=== PATIENT | male | born 1985 | race Two or more races ===

== ENCOUNTER 2024-12-30 11:37 | Inpatient (IN) | payer OTHER ==
[~2024-12-30] VITALS: Ht 180.3 cm; Wt 99.1 kg
[2024-12-30] MEDS: ONDANSETRON HCL 4 MG/2 ML VIAL IV ONE (12:12)
[2024-12-30] MEDS: PANTOPRAZOLE 40 MG/10 ML VIAL INJ IV ONE (12:12)
--- NOTE | 2024-12-30 12:12 | ED.PDOC ---
GI ASSESSMENT HPI Comments 41 y/o M, BIBA, accompanied by law enforcement, with PMHx of A-Fib, gastritis, esophageal varices, and hyperthyroidism presents to the ED for CC of abdominal pain. EMS reports, patient is [facility] where he complains of LUQ abdominal pain with associated symptoms of hematemesis, dizziness, and headache onset, 1hour TILE SETTER APPRENTICE. EMS relays, upon arrival to scene patient was found to be hypertensive with a blood pressure of 230/120, lethargic vomiting approximately 2000mL of bright red emesis. Patient endorses, similar symptoms in past. Patient denies hematochezia, epistaxis, diarrhea, fever, or chills. No other symptoms or modifying factors present at this time. Chief Complaint: Abdominal Pain Time Seen by MD: 12:00 Primary Care Provider: NONE Reviewed Notes: Nurses Notes, Metal Buildings Assembler Notes, Medications, Allergies Allergies: Coded Allergies: NO KNOWN ALLERGIES (Unverified , 12/30/24) Information Source: Patient, Law Enforcement, Emergency Med Personnel Mode of Arrival: EMS Timing: Hours Duration: Since onset Prehospital treatment: None Quality: None Vomitus: Watery, Bright Red Bood Stool: Normal Severity: Moderate Recent: None Recent Hx of: Ulcer Disease Pain Location: LUQ Modifying Factors: Nothing Associated sign and symptoms: Nausea, Vomiting, Hematemesis, Abdominal Pain Past Medical History PAST MEDICAL HISTORY: AFIB, Thyroid Surgical History: Denies all surgeries Family History Family History: Unknown Social History Smoker: Non-Smoker Alcohol: Denies ETOH Use Drugs: Denies Drug Use Lives In: Home Constitutional: denies: chills, diaphoresis, fatigue, fever, malaise, sweats, weakness, others EENTM: denies: blurred vision, double vision, ear bleeding, ear discharge, ear drainage, ear pain, ear ringing, eye pain, eye redness, hearing loss, mouth pain, mouth swelling, nasal discharge, nose bleeding, nose congestion, nose pain, photophobia, tearing, throat pain, throat swelling, voice changes, others Respiratory: denies: cough, hemoptysis, orthopnea, SOB at rest, shortness of breath, SOB with excertion, stridor, wheezing, others Cardiovascular: denies: chest pain, dizzy spells, diaphoresis, Dyspnea on exertion, edema, irregular heart beat, left arm pain, lightheadedness, palpitations, PND, syncope, others Gastrointestinal: reports: abdominal pain, hematemesis; denies: abdomen distended, blood streaked bowels, constipated, diarrhea, dysphagia, difficulty swallowing, melena, nausea, poor appetite, poor fluid intake, rectal bleeding, rectal pain, vomiting, others Genitourinary: denies: burning, dysuria, flank pain, frequency, hematuria, incontinence, penile discharge, penile sore, pain, testicle pain, testicle swelling, urgency, others Neurological: reports: dizziness, headache; denies: fainting, left sided numbness, left sided weakness, numbness, paresthesia, pre-existing deficit, right sided numbness, right sided weakness, seizure, speech problems, tingling, tremors, weakness, others Musculoskeletal: denies: back pain, gout, joint pain, joint swelling, muscle pain, muscle stiffness, neck pain, others Integumetry: denies: bruises, change in color, change in hair/nails, dryness, laceration, lesions, lumps, rash, wounds, others Allergic/Immunocompromised: denies: Difficulty Healing, Frequent Infections, Hives, Itching, others Hematologic/Lymphatic: denies: anemia, blood clots, easy bleeding, easy bruising, swollen glands, others Endocrine: denies: excessive hunger, excessive sweating, excessive thirst, excessive urination, flushing, intolerance to cold, intolerance to heat, unexplained weight gain, unexplained weight loss, others Psychiatric: denies: anxiety, bipolar disorder, depression, hopeless, panic disorder, schizophrenia, sleepless, suicidal, others All Other Systems: Reviewed and Negative Physical Exam General Appearance: Moderate Distress, Normal, Other (10 CC of bright red emesis) HEENT: Normal ENT Inspection, Pharynx Normal, TMs Normal Neck: Full Range of Motion, Non-Tender, Normal, Normal Inspection Respiratory: Chest Non-Tender, Lungs Clear, No Accessory Muscle Use, No Respiratory Distress, Normal Breath Sounds Cardiovascular: No Edema, No Murmur, No Gallop, Normal Peripheral Pulses, Tachycardia Breast Exam: Deferred Gastrointestinal: No Organomegaly, Non Tender, No Pulsatile Mass, Normal Bowel Sounds, Soft Genitalia: Deferred Pelvic: Deferred Rectal: Deferred Extremities: No calf tenderness, Normal capillary refill, Normal inspection, Normal range of motion, Non-tender, No pedal edema Musculoskeletal : Apperance: Normal Neurologic: Alert, 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 Was a procedure done?: No GI differential Dx Differential Diagnosis: Esophageal rupture, Esophagitis, Gastritis/PUD, Gastroenteritis, GI hemorrhage, Hernia, Pancreatitis, Electrolyte Imbalance, Anemia, Other (esophageal varices, , benjamín weisse) X-Ray, Labs, Meds, VS Vital Signs Date Time Temp Pulse Resp B/P (MAP) Pulse Ox O2 Delivery O2 Flow Rate FiO2 12/30/24 12:41 60 18 169/107 12/30/24 12:10 56 17 145/120 (128) 93 12/30/24 11:40 98.8 66 16 230/190 (203) 98 98.8 Lab Test 12/30/24 13:28 12/30/24 12:12 Range/Units Troponin I High Sensitivity 6 7 </=54 ng/L White Blood Count 6.3 4.4-10.8 10^3/uL Red Blood Count 5.33 4.5-5.90 10^6/uL Hemoglobin 15.8 13.5-17.5 g/dL Hematocrit 46.1 41.0-53.0 % Mean Corpuscular Volume 86.5 80.0-100.0 fL Mean Corpuscular Hemoglobin 29.7 28.0-32.0 pg Mean Corpuscular Hemoglobin Concent 34.3 32.0-36.0 g/dL Red Cell Distribution Width 16.9 H 11.8-14.3 % Platelet Count 124 L 140-450 10^3/uL Mean Platelet Volume 10.2 6.9-10.8 fL Neutrophils (%) (Auto) 56.7 37.0-80.0 % Lymphocytes (%) (Auto) 36.2 10.0-50.0 % Monocytes (%) (Auto) 5.9 0.0-12.0 % Eosinophils (%) (Auto) 0.8 0.0-7.0 % Basophils (%) (Auto) 0.4 0.0-2.0 % Neutrophils # (Auto) 3.6 1.6-8.6 10 ^3/uL Lymphocytes # (Auto) 2.3 0.4-5.4 10 ^3/uL Monocytes # (Auto) 0.4 0-1.3 10 ^3/uL Eosinophils # (Auto) 0.1 0-0.8 10 ^3/uL Basophils # (Auto) 0 0-0.2 10 ^3/uL Nucleated Red Blood Cells 0.2 % Prothrombin Time 12.2 H 9.3-11.8 sec Prothrombin Time INR 1.17 H 0.9-1.15 Activated Partial Thromboplast Time 26.9 24.5-34.5 SEC Sodium Level 139 136-145 mmol/L Potassium Level 4.6 3.5-5.1 mmol/L Chloride Level 105 98-107 mmol/L Carbon Dioxide Level 24 20-31 mmol/L Anion Gap 10 5-15 Blood Urea Nitrogen 14 9-23 mg/dL Creatinine 0.96 0.700-1.30 mg/dL Glomerular Filtration Rate Calc 103 >90 mL/min BUN/Creatinine Ratio 14.6 10.0-20.0 Serum Glucose 85 74-106 mg/dL Calcium Level 9.7 8.7-10.4 mg/dL Total Bilirubin 0.7 0.2-1.0 mg/dL Aspartate Amino Transferase (AST) 36 13-40 U/L Alanine Aminotransferase (ALT) 21 7-40 U/L Alkaline Phosphatase 358 H 46-116 U/L Total Protein 8.1 5.7-8.2 g/dL Albumin 4.9 H 3.2-4.8 g/dL Current Medications Medications (Trade) Dose Ordered Sig/Mariam Route Start Time Stop Time Status Last Admin Octreotide Acetate 100 mcg/ Sodium Chloride 51 ml @ 204 mls/hr ONCE ONCE IV 12/30/24 12:00 12/30/24 12:27 DC 12/30/24 14:40 Octreotide Acetate 500 mcg/ Sodium Chloride 100 ml @ 10 mls/hr Q10H IV 12/30/24 12:00 12/30/24 15:18 Pantoprazole Sodium 50 ml @ 10 mls/hr Q5H ONCE IV 12/30/24 12:00 12/30/24 16:59 12/30/24 15:10 Pantoprazole Sodium 80 mg/ Sodium Chloride 120 ml @ 240 mls/hr ONCE ONCE IV 12/30/24 12:00 12/30/24 12:29 DC 12/30/24 14:30 Pantoprazole Sodium (Protonix) 40 mg ONCE ONCE IV 12/30/24 12:00 12/30/24 12:01 DC 12/30/24 12:12 Ondansetron HCl (Zofran) 4 mg ONCE ONCE IV 12/30/24 12:00 12/30/24 12:01 DC 12/30/24 12:12 Hydromorphone HCl (Dilaudid Injection) 1 mg ONCE ONCE IV 12/30/24 12:45 12/30/24 12:46 DC 12/30/24 12:41 [place] [address] Ph: [phone] DIAGNOSTIC IMAGING Diagnostic Imaging Report : [id number] Signed PATIENT: SIMIN ESCOBEDO ACCT: [id number] UNIT: [id number] : 1985 LOC: ER ROOM / BED: / AGE / SEX: 39 / M ADM STATUS: REG ER SERVICE 1155 ORDERING PHYSICIAN: TYRON PHILLIP MD PROCEDURE(s): ABPLIV - CT AB PEL WITH IV CON ONLY REASON: upper gib ORDER NUMBER(s): [id number], ACCESSION NUMBER(s): [id number] CLINICAL INFORMATION: Upper GI bleed. Abdominal pain. TECHNIQUE: Axial CT images of the abdomen and pelvis were obtained after the uneventful administration of 100 mL Omnipaque 300 IV contrast. Coronal and sagittal reformatted images were obtained, reviewed, and stored. All CT scans at this medical facility are performed using dose modulation techniques as appropriate to a performed exam including the following: Automated exposure control was utilized; adjustment of the MA and/or KV according to patient size; and use of iterative reconstruction technique. CTDIvol = 12.08 mGy DLP = 783.49 mGy-cm COMPARISON: None FINDINGS: Lung bases: Lung bases are clear. Liver: Hepatic steatosis. Biliary: No calcified gallstones or biliary ductal dilatation. Spleen: Unremarkable. Pancreas: Unremarkable. No inflammatory changes, ductal dilatation, or mass identified. Adrenal glands: Unremarkable. No mass. Kidneys: No hydronephrosis or mass. Aorta/Vascular: No aneurysm or significant calcification. Retroperitoneum: No mass or lymphadenopathy. Bowel/mesentery: Nonspecific mildly distended fluid-filled small bowel loops. No small bowel obstruction. Appendix is not visualized. Scattered colonic diverticula without adjacent inflammatory changes to suggest diverticulitis. Moderate stool in the colon. Pelvic organs: Grossly unremarkable. Bladder: Moderately distended bladder. Abdominal wall: No mass or hernia. Bones: No acute fracture or focal intraosseous lesion. IMPRESSION: 1. Nonspecific mildly distended fluid-filled small bowel loops. Findings may be seen with ileus or enteritis in the appropriate clinical setting. No small bowel obstruction. 2. Scattered colonic diverticula without adjacent inflammatory changes to suggest diverticulitis. 3. Hepatic steatosis. 4. Moderately distended bladder. 5. Additional findings as detailed above. ATED BY: KAMALJIT MACDONALD DO DICTATED DATE/TIME: 12/30/241352 SIGNED BY: KAMALJIT MACDONALD DO SIGNED DATE/TIME: 12/30/24 135 CC: [place] [address] Ph: [phone] DIAGNOSTIC IMAGING Diagnostic Imaging Report : [id number] Signed PATIENT: SIMIN ESCOBEDO ACCT: [id number] UNIT: [id number] : 1985 LOC: ER ROOM / BED: / AGE / SEX: 39 / M ADM STATUS: REG ER SERVICE 1155 ORDERING PHYSICIAN: TYRON PHILLIP MD PROCEDURE(s): CXRP - CHEST PORTABLE REASON: afib ORDER NUMBER(s): [id number], ACCESSION NUMBER(s): [id number] EXAM: XY CHEST PORTABLE REASON FOR EXAM: afib TECHNIQUE: 1 view of the chest COMPARISON: None FINDINGS/IMPRESSION: LUNGS: No pleural effusion, consolidation, or pneumothorax. Suspected central pulmonary vascular congestion and peripheral interstitial edema. MEDIASTINUM: Unremarkable BONES: No acute osseous abnormality OTHER: None ATED BY: RIVER PRIETO MD DICTATED DATE/TIME: 12/30/24 141 SIGNED BY: RIVER PRIETO MD SIGNED DATE/TIME: 12/30/241418 CC: Time of 1ST Reevaluation: 12:30 Reevaluation 1ST: Unchanged Time of 2ND Reevaluation: 15:34 Reevaluation 2ND: Improved Patient Education/Counseling: Diagnosis, Treatment, Prognosis, Need For Follow Up Family Education/Counseling: Diagnosis, Treatment, Prognosis, Need For Follow Up, No Family Present Additional Information The following tests were ordered, and results were reviewed by me: CT ABD PEL, CXR, CBC, CMP, PTPTT, TROPONIN X2, EKG X2 Additional Information was gathered from interviewing the following independent historians: EMS, LAW ENFORCEMENT I reviewed and agreed with the following test results read by other providers: CT ABD PEL, CXR, I discussed treatment and results with medical personnel and: patient Comprehensive systems review obtained and negative except for what is stated in the HPI. Departure 1 Departure Time of Disposition: 15:34 Impression: Primary Impression: UGIB (upper gastrointestinal bleed) Disposition: ADMITTED INPATIENT Admit to: [facility] Condition: Serious Discharged With: Self, Law Enforcement Critical Care Note Critical Care Time?: Yes (1 hr-critical care time only) Critical care comment: due to concerns for patient's condition deteriorating, the care required my highest level of attention and readiness to intervene. i assessed the patient's condition, ordered the proper tests and treatments, reassessed for response and reviewed the results. i communicated with medical personnel and formulated a plan of care. total critical care time does not include any procedures Stability Stability form required: No Heart Score Heart Score: Heart Score Response (Comments) Value History N/A 0 EKG N/A 0 Age N/A 0 Risk Factors N/A 0 Troponin N/A 0 Total 0 I personally scribed for TYRON PHILLIP MD ([email or web address]) on 12/30/24 at 12:12. Electronically submitted by Rosie Parr ([email or web address]). I personally scribed for TYRON PHILLIP MD ([email or web address]) on 12/30/24 at 12:20. Electronically submitted by Rosie Parr ([email or web address]). I personally scribed for TYRON PHILLIP MD ([email or web address]) on 12/30/24 at 14:22. Electronically submitted by Rosie Parr ([email or web address]). I personally scribed for TYRON PHILLIP MD ([email or web address]) on 12/30/24 at 15:13. Electronically submitted by Rosie Parr [email or web address]). TYRON PHILLIP MD December 30, 2024 12:12
[2024-12-30 12:23] LABS: Basophils # (auto) 0 10 ^3/uL (0-0.2); Basophils % (auto) 0.4 % (0.0-2.0); Eosinophils # (auto) 0.1 10 ^3/uL (0-0.8); Eosinophils % (auto) 0.8 % (0.0-7.0); Hematocrit 46.1 % (41.0-53.0); Hemoglobin 15.8 g/dL (13.5-17.5); Lymphocytes # (auto) 2.3 10 ^3/uL (0.4-5.4); Lymphocytes % (auto) 36.2 % (10.0-50.0); Mean Corpuscular Hemoglobin 29.7 pg (28.0-32.0); Mean Corpuscular Hgb Conc. 34.3 g/dL (32.0-36.0); Mean Corpuscular Volume 86.5 fL (80.0-100.0); Monocytes # (auto) 0.4 10 ^3/uL (0-1.3); Monocytes % (auto) 5.9 % (0.0-12.0); Neutrophils # (auto) 3.6 10 ^3/uL (1.6-8.6); Neutrophils % (auto) 56.7 % (37.0-80.0); Nucleated Red Blood Cells % 0.2 %; Platelet Count (auto) 124 10^3/uL (140-450); Red Blood Cells 5.33 10^6/uL (4.5-5.90); Red Cell Distribution Width 16.9 % (11.8-14.3); White Blood Cell 6.3 10^3/uL (4.4-10.8)
[2024-12-30] MEDS: IOHEXOL 300 MG/ML 100ML BOTTLE IJ ONE (12:29)
[2024-12-30] MEDS: LABETALOL HCL 20 MG/4 ML VL IV ONE (12:37)
[2024-12-30] MEDS: LABETALOL INJECTION 250 MG in SODIUM CHL 0.9% 200 ML IV ONE (12:37)
[2024-12-30 12:38] LABS: INR 1.17 (0.9-1.15); Partial Thromboplastin Time 26.9 SEC (24.5-34.5); Prothrombin Time 12.2 sec (9.3-11.8)
[2024-12-30] MEDS: HYDROmorphone HCL 2 MG/ML VL/or syr IV ONE (12:41)
[2024-12-30 12:43] LABS: Alanine Aminotransferase 21 U/L (7-40); Albumin 4.9 g/dL (3.2-4.8); Alkaline Phosphatase 358 U/L (46-116); Anion Gap 10 (5-15); Aspartate Aminotransferase 36 U/L (13-40); BUN/Creatinine Ratio 14.6 (10.0-20.0); Bilirubin, Total 0.7 mg/dL (0.2-1.0); Blood Urea Nitrogen 14 mg/dL (9-23); Calcium 9.7 mg/dL (8.7-10.4); Carbon Dioxide 24 mmol/L (20-31); Chloride 105 mmol/L (98-107); Glucose 85 mg/dL (74-106); Potassium 4.6 mmol/L (3.5-5.1); Sodium 139 mmol/L (136-145); Total Protein 8.1 g/dL (5.7-8.2)
--- NOTE | 2024-12-30 13:55 | DVH ---
CLINICAL INFORMATION: Upper GI bleed. Abdominal pain. TECHNIQUE: Axial CT images of the abdomen and pelvis were obtained after the uneventful administrati on of 100 mL Omnipaque 300 IV contrast. Coronal and sagittal reformatted images were obtained, review ed, and stored. All CT scans at this medical facility are performed using dose modulation techniques as appropriate to a performed exam including the following: Automated exposure control was utilized; adjustment of the MA and/or KV according to patient size; and use of iterative reconstruction technRichard Toland Designs ue. CTDIvol = 12.08 mGy DLP = 783.49 mGy-cm COMPARISON: None FINDINGS: Lung bases: Lung bases are clear. Liver: Hepatic steatosis. Biliary: No calcified gallstones or biliary ductal dilatation. Spleen: Unremarkable. Pancreas: Unremarkable. No inflammatory changes, ductal dilatation, or mass identified. Adrenal glands: Unremarkable. No mass. Kidneys: No hydronephrosis or mass. Aorta/Vascular: No aneurysm or significant calcification. Retroperitoneum: No mass or lymphadenopathy. Bowel/mesentery: Nonspecific mildly distended fluid-filled small bowel loops. No small bowel obstruct ion. Appendix is not visualized. Scattered colonic diverticula without adjacent inflammatory changes to suggest diverticulitis. Moderate stool in the colon. Pelvic organs: Grossly unremarkable. Bladder: Moderately distended bladder. Abdominal wall: No mass or hernia. Bones: No acute fracture or focal intraosseous lesion. IMPRESSION: 1. Nonspecific mildly distended fluid-filled small bowel loops. Findings may be seen with ileus or en teritis in the appropriate clinical setting. No small bowel obstruction. 2. Scattered colonic diverticula without adjacent inflammatory changes to suggest diverticulitis. 3. Hepatic steatosis. 4. Moderately distended bladder. 5. Additional findings as detailed above.
--- NOTE | 2024-12-30 14:21 | DVH ---
EXAM: XY CHEST PORTABLE REASON FOR EXAM: afib TECHNIQUE: 1 view of the chest COMPARISON: None FINDINGS/IMPRESSION: LUNGS: No pleural effusion, consolidation, or pneumothorax. Suspected central pulmonary vascular ariel estion and peripheral interstitial edema. MEDIASTINUM: Unremarkable BONES: No acute osseous abnormality OTHER: None
[2024-12-30] MEDS: PANTOPRAZOLE 80 MG in SODIUM CHL 0.9% 100 ML IV ONE (14:30)
[2024-12-30] MEDS: OCTREOTIDE ACETATE 100 MCG in SODIUM CHL 0.9% 50 ML IV ONE (14:40)
[2024-12-30] MEDS: PANTOPRAZOLE 40mg/50ML NS AE 50 ML IV ONE (15:10)
[2024-12-30] MEDS: OCTREOTIDE ACETATE 500 MCG in SODIUM CHL 0.9% 99 ML IV SCH (15:18)
[2024-12-30] MEDS ORDERED: AMLO1TAB23 PO (16:11)
[2024-12-30] MEDS ORDERED: APIX5TAB PO (16:11)
[2024-12-30] MEDS ORDERED: OMEP-434 PO (16:11)
[2024-12-30] MEDS ORDERED: METO-289 PO (16:11)
[2024-12-30] MEDS ORDERED: LOSA-535 PO (16:11)
[2024-12-30] MEDS ORDERED: METH5TAB98 PO (16:11)
[2024-12-30] MEDS ORDERED: SUCR1TAB31 OR (16:11)
--- NOTE | 2024-12-30 16:13 | ECG ---
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
[2024-12-30] MEDS ORDERED: ONDANSETRON HCL 4 MG/2 ML VIAL IV PRN (16:15)
[2024-12-30] MEDS ORDERED: MORPHINE SULFATE INJ 2 MG/ml SYRG IV PRN (16:15)
[2024-12-30] MEDS ORDERED: NITROGLYCERIN 0.4 MG SL TAB SL PRN (16:15)
[2024-12-30 16:28] LABS: Hemoglobin 15.4 g/dL (13.5-17.5)
[2024-12-30 16:43] LABS: Urine Bacteria None Seen /hpf (None Seen)
--- NOTE | 2024-12-30 16:45 | DVHHP2 ---
History of Present Illness Reason for Visit: Vomiting blood History of Present Illness Bulmaro Brennan is a 39-year-old male with past medical history of esophageal varices, GI bleed, multiple EGDs, atrial fibrillation - on anticoagulation, gastritis, and hyperthyroidism, who came in due to vomiting blood. Patient states he woke up this morning not feeling great. Went to get ready for work. While in the bathroom he began to feel sick and vomited bright red blood. He states he was then given an emesis bag that he filled up bright red vomit. He continued to vomit upon arrival to the hospital. Emesis is now a dark brown in color, and minimal. He last vomited around 12:30pm. 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 Dyspnea, Edema, Lt Headedness, Other Gastrointestinal: Nausea, Vomiting, Abdominal Pain, Hematochezia; No: Diarrhea, Constipation, Melena, Other Genitourinary: No Dysuria, No Frequency, No Incontinence, No Hematuria, No Retention, No Other Musculoskeletal: No: other, neck pain, shoulder pain, arm pain, back pain, hand pain, leg pain, foot pain Skin: No: Rash, Lesions, Jaundice, Bruising, Other Neurological: No: Weakness, Numbness, Incoordination, Change in speech, Confusion, Seizures, Other Allergies: Coded Allergies: NO KNOWN ALLERGIES (Unverified , 12/30/24) Medications Current Medications Medications Dose Ordered Sig/Mariam Route Start Time Stop Time Status Last Admin Dose Admin Octreotide Acetate 500 mcg/ Sodium Chloride 100 ml @ 10 mls/hr Q10H IV 12/30/24 12:00 12/30/24 15:18 10 MLS/HR Nicardipine/ Sodium Chloride 200 ml @ 50 mls/hr Q4H IV 12/30/24 16:15 UNV Exam Vital Signs Vital Signs Date Time Temp Pulse Resp B/P (MAP) Pulse Ox O2 Delivery O2 Flow Rate FiO2 12/30/24 15:37 60 166/96 (119) 96 12/30/24 13:11 15 12/30/24 11:40 98.8 98.8 General Appearance: Alert, Oriented X3, Cooperative, moderate distress HEENT: Atraumatic, PERRLA Respiratory: Clear to auscultation Cardiovascular: Normal S1, Normal S2, Other (SB) Abdominal: Normal bowel sounds, Soft Extremities: No clubbing, No cyanosis Skin: No rashes, No breakdown, No significant lesion Neuro: Normal gait, Normal speech, Strength at 5/5 X4 ext, Normal tone, Sensation intact Psych/Mental Status: Mental status NL, Mood NL, Other Labs/Xrays Labs Test 12/30/24 13:28 12/30/24 12:12 Range/Units Troponin I High Sensitivity 6 </=54 ng/L White Blood Count 6.3 4.4-10.8 10^3/uL Red Blood Count 5.33 4.5-5.90 10^6/uL Hemoglobin 15.8 13.5-17.5 g/dL Hematocrit 46.1 41.0-53.0 % Mean Corpuscular Volume 86.5 80.0-100.0 fL Mean Corpuscular Hemoglobin 29.7 28.0-32.0 pg Mean Corpuscular Hemoglobin Concent 34.3 32.0-36.0 g/dL Red Cell Distribution Width 16.9 H 11.8-14.3 % Platelet Count 124 L 140-450 10^3/uL Mean Platelet Volume 10.2 6.9-10.8 fL Neutrophils (%) (Auto) 56.7 37.0-80.0 % Lymphocytes (%) (Auto) 36.2 10.0-50.0 % Monocytes (%) (Auto) 5.9 0.0-12.0 % Eosinophils (%) (Auto) 0.8 0.0-7.0 % Basophils (%) (Auto) 0.4 0.0-2.0 % Neutrophils # (Auto) 3.6 1.6-8.6 10 ^3/uL Lymphocytes # (Auto) 2.3 0.4-5.4 10 ^3/uL Monocytes # (Auto) 0.4 0-1.3 10 ^3/uL Eosinophils # (Auto) 0.1 0-0.8 10 ^3/uL Basophils # (Auto) 0 0-0.2 10 ^3/uL Nucleated Red Blood Cells 0.2 % Prothrombin Time 12.2 H 9.3-11.8 sec Prothrombin Time INR 1.17 H 0.9-1.15 Activated Partial Thromboplast Time 26.9 24.5-34.5 SEC Sodium Level 139 136-145 mmol/L Potassium Level 4.6 3.5-5.1 mmol/L Chloride Level 105 98-107 mmol/L Carbon Dioxide Level 24 20-31 mmol/L Anion Gap 10 5-15 Blood Urea Nitrogen 14 9-23 mg/dL Creatinine 0.96 0.700-1.30 mg/dL Glomerular Filtration Rate Calc 103 >90 mL/min BUN/Creatinine Ratio 14.6 10.0-20.0 Serum Glucose 85 74-106 mg/dL Calcium Level 9.7 8.7-10.4 mg/dL Total Bilirubin 0.7 0.2-1.0 mg/dL Aspartate Amino Transferase (AST) 36 13-40 U/L Alanine Aminotransferase (ALT) 21 7-40 U/L Alkaline Phosphatase 358 H 46-116 U/L Total Protein 8.1 5.7-8.2 g/dL Albumin 4.9 H 3.2-4.8 g/dL EXAM: XY CHEST PORTABLE REASON FOR EXAM: afib TECHNIQUE: 1 view of the chest COMPARISON: None FINDINGS/IMPRESSION: LUNGS: No pleural effusion, consolidation, or pneumothorax. Suspected central pulmonary vascular congestion and peripheral interstitial edema. MEDIASTINUM: Unremarkable BONES: No acute osseous abnormality OTHER: None TECHNIQUE: Axial CT images of the abdomen and pelvis were obtained after the uneventful administration of 100 mL Omnipaque 300 IV contrast. FINDINGS: Lung bases: Lung bases are clear. Liver: Hepatic steatosis. Biliary: No calcified gallstones or biliary ductal dilatation. Spleen: Unremarkable. Pancreas: Unremarkable. No inflammatory changes, ductal dilatation, or mass identified. Adrenal glands: Unremarkable. No mass. Kidneys: No hydronephrosis or mass. Aorta/Vascular: No aneurysm or significant calcification. Retroperitoneum: No mass or lymphadenopathy. Bowel/mesentery: Nonspecific mildly distended fluid-filled small bowel loops. No small bowel obstruction. Appendix is not visualized. Scattered colonic diverticula without adjacent inflammatory changes to suggest diverticulitis. Moderate stool in the colon. Pelvic organs: Grossly unremarkable. Bladder: Moderately distended bladder. Abdominal wall: No mass or hernia. Bones: No acute fracture or focal intraosseous lesion. IMPRESSION: 1. Nonspecific mildly distended fluid-filled small bowel loops. Findings may be seen with ileus or enteritis in the appropriate clinical setting. No small bowel obstruction. 2. Scattered colonic diverticula without adjacent inflammatory changes to suggest diverticulitis. 3. Hepatic steatosis. 4. Moderately distended bladder. 5. Additional findings as detailed above. Assessment/Plan Assessment/Plan Assessment: UGIB (upper gastrointestinal bleed), Hypertensive urgency, Intractable headache, Abdominal pain, Bradycardia, H/O esophageal varices, Hyperthyroidism, H/O atrial fibrillation - on blood thinner, Gastritis, Plan: Admit to ICU, GI consult, Nicardipine drip to keep SBP <140, Protonix drip, Octreotide drip, IV hydration, IV Toradol x 1 for severe headache, NPO, Home medications held due to patient being NPO, Plan discussed with: Patient My Orders Orders - HILARIO JONES Procedure Category Date Status Time Hemoglobin & LAB 12/30/24 Logged Hematocrit 16:08 * Gi Dvh Utility Driver CONS 12/30/24 Transmitted 16:08 Nicardipine Hcl In PHA 12/30/24 Logged Sodium Chlo (Cardene 16:15 Date of Service: December 30, 2024 Billing Provider: HILARIO JONES Common Visit Codes: [id number] INP/OBS CARE (HIGH) HILARIO JONES December 30, 2024 16:45
[2024-12-30 16:51] LABS: Urine Blood Negative /uL (Negative); Urine Clarity Clear (Clear); Urine Color Light-Yellow (Yellow); Urine Protein, UAD Negative (Negative); Urine Specific Gravity 1.023 (1.001-1.035); Urine Squamous Epithelial Cell None Seen /hpf (<5); Urine Urobilinogen Normal (Negative); Urine WBC < 1 /HPF (0-3)
[2024-12-30] MEDS: NICARDIPINE HCL IN SODIUM CHLO 200 ML IV SCH (16:56)
[2024-12-30 17:00] VITALS: PULSE 62; RESP 11; O2SAT 96
[2024-12-30] MEDS: KETOROLAC TROMETH 30 MG/ML 1ML VIAL IV ONE (17:16)
[2024-12-30] MEDS: SODIUM CHLORIDE 0.9% 1,000 ML IV SCH (17:26)
[2024-12-30 20:04] VITALS: PULSE 63; RESP 13; O2SAT 97
[2024-12-30] MEDS: hydrALAZINE HCL 20 MG/ML VL IV PRN (22:08)
[2024-12-31] VITALS (9 sets, daily range): BP systolic 131–171; BP diastolic 71–125; PULSE 55–76; RESP 16–20; TEMP 97.6–98.3; O2SAT 95–99
[2024-12-31 06:19] LABS: Basophils # (auto) 0 10 ^3/uL (0-0.2); Basophils % (auto) 0.3 % (0.0-2.0); Eosinophils # (auto) 0.1 10 ^3/uL (0-0.8); Eosinophils % (auto) 1.5 % (0.0-7.0); Hematocrit 46.5 % (41.0-53.0); Hemoglobin 16.2 g/dL (13.5-17.5); Lymphocytes % (auto) 37.7 % (10.0-50.0); Mean Corpuscular Hemoglobin 29.9 pg (28.0-32.0); Mean Corpuscular Hgb Conc. 34.8 g/dL (32.0-36.0); Mean Corpuscular Volume 85.8 fL (80.0-100.0); Monocytes # (auto) 0.3 10 ^3/uL (0-1.3); Monocytes % (auto) 5.8 % (0.0-12.0); Neutrophils % (auto) 54.7 % (37.0-80.0); Nucleated Red Blood Cells % 0.3 %; Platelet Count (auto) 118 10^3/uL (140-450); Red Blood Cells 5.42 10^6/uL (4.5-5.90); Red Cell Distribution Width 16.9 % (11.8-14.3); White Blood Cell 5.4 10^3/uL (4.4-10.8)
[2024-12-31 06:39] LABS: Alanine Aminotransferase 21 U/L (7-40); Albumin 4.4 g/dL (3.2-4.8); Anion Gap 9 (5-15); Aspartate Aminotransferase 31 U/L (13-40); BUN/Creatinine Ratio 16.5 (10.0-20.0); Bilirubin, Total 1.1 mg/dL (0.2-1.0); Blood Urea Nitrogen 17 mg/dL (9-23); Calcium 9.3 mg/dL (8.7-10.4); Carbon Dioxide 25 mmol/L (20-31); Chloride 103 mmol/L (98-107); Potassium 4.3 mmol/L (3.5-5.1); Sodium 137 mmol/L (136-145); Total Protein 7.3 g/dL (5.7-8.2)
[2024-12-31 06:41] LABS: Alkaline Phosphatase 345 U/L (46-116); Glucose 112 mg/dL (74-106)
--- NOTE | 2024-12-31 13:23 | DVHHP ---
ADMIT DATE: 12/31/2024 ATTENDING PHYSICIAN: Jose De Jesus Trejo MD CHIEF COMPLAINT: Hematemesis. HISTORY OF PRESENT ILLNESS: This is a 39-year-old male, [facility] inmate, who has known history of atrial fibrillation, hyperthyroidism, esophageal varices and fatty liver. He states that yesterday, while at work, he suddenly felt nauseous and vomited bright red and dark black blood. He had several episodes. 911 was called. He was brought to the Emergency Room. The hematemesis was verified. He was started on Protonix and Sandostatin drip and has not vomited since. The patient states he had this happen a couple of years ago. Of note, he was just recently diagnosed with AFib and he started on Eliquis and started on treatment for hyperthyroidism. Currently, he complains of headache. He says he had a little bit of left-sided abdominal pain yesterday, but seems to have improved today. He had some midepigastric burning pain, which is mild. He is complaining about being hungry. His hemoglobin has been stable. PAST MEDICAL HISTORY: Again, he has atrial fibrillation, hypertension, fatty liver, esophageal varices, hyperthyroid. PAST SURGICAL HISTORY: Denies. FAMILY HISTORY: Hypertension. SOCIAL HISTORY: He denies smoking. He did have some moderate alcohol use and did use drug use on the outside. REVIEW OF SYSTEMS: GENERAL: He has had recent weight gain since starting on the antithyroid treatment. HEENT: Complaints of headache, mild to moderate. CARDIOVASCULAR: Denies chest pain, heart disease. RESPIRATORY: Denies cough, shortness of breath, hemoptysis. GI: As per HPI. : Denies any hematuria, dysuria. NEUROLOGIC: Denies any focal deficits. PHYSICAL EXAMINATION: VITAL SIGNS: Temperature is 97.6 with a blood pressure of 171/107, heart rate of 66, respiratory rate 20, O2 sats 97% on room air. HEENT: Normocephalic. Anicteric sclerae, pink conjunctivae. EOMI. NECK: Supple. There is no JVD, mass, or bruit. CHEST: Good equal excursion bilateral. HEART: S1, S2. Regular rate and rhythm without click, murmur, or gallop. LUNGS: Good equal air exchange bilaterally. Clear to auscultation. ABDOMEN: Soft. There is some midepigastric tenderness. Bowel sounds are positive. There is no guarding or rebound. NEUROLOGIC: He is awake, alert and oriented x 4 without focal deficits. LABORATORY DATA: WBC of 5.4; hemoglobin initially is 15.8, currently is 16.2; and platelets of 118. Sodium 137, potassium 4.3, BUN 17, creatinine 1.03, glucose of 112. Total bilirubin 1.1. AST and ALT are normal. Alkaline phosphatase is 345. PT is 12.2, PTT 26.9. The UA is unremarkable. Chest x-ray and the abdomen and pelvis shows possible ileus or enteritis. No evidence of bowel obstruction. Hepatic steatosis. Moderately distended bladder. ASSESSMENT: * Hematemesis * History of AFib, on anticoagulant (Eliquis). * Hepatic steatosis/fatty liver. * History of esophageal varices. PLAN: We will admit to Med/Surg. I will start the patient on a clear liquid diet. We will convert Protonix to oral and I will start the patient's antihypertensive medication and his thyroid medicine, methimazole. We will follow CBC and we will await GI consult. MD PATI Fish/ANTONIO TID: [id number] RECEIPT: [id number]
[2024-12-31 13:34] LABS: Lipase 34 U/L (12-53)
[2024-12-31 13:36] LABS: Amylase 49 U/L (30-118)
--- NOTE | 2024-12-31 14:16 | DVH ---
Procedure: US ABDOMEN LIMITED Study Date and Requested Time: 12/31/2024 01:19 PM History: abd pain/elevated alk phos Comparison: None Technique: Multiple high resolution frank-scale images obtained of the right upper quadrant of the abd omen with color Doppler for evaluation of blood flow and vascularity as indicated. Findings: Liver normal in size, measuring 15.3 cm in length, with homogenous echotexture and normal contours. N o evidence of focal hepatic lesions, intrahepatic or extrahepatic ductal dilatation. Common bile duct measures 0.5 cm in diameter. Gallbladder unremarkable with no evidence of abnormal wall thickening, gallstones, biliary sludge, or pericholecystic fluid. Negative sonographic Tiwari's sign. Pancreas is obscured by bowel gas. Right kidney measures 9.1 cm in length, with normal contours, echotexture, and cortical thickness. No evidence of hydronephrosis, calculi, cystic or solid renal lesions. Partially visualized inferior vena cava unremarkable. Impression: Limited evaluation with the pancreas obscured by bowel gas. Otherwise, Unremarkable sonographic stud y of the right upper quadrant of the abdomen.
--- NOTE | 2024-12-31 17:32 | DVHINCON2 ---
Date of service: December 31, [address] Jose De Jesus Trejo Reason for Consultation UGI bleed History of Present Illness Bulmaro Brennan is a 39-year-old male inmate admitted to our hospital with history of upper GI bleed. He has past medical history of esophageal varices, GI bleed, multiple EGDs, atrial fibrillation - recently started on anticoagulation with Eliquis, gastritis, and hyperthyroidism, who came in due to vomiting blood. Patient states he woke up this morning not feeling great. Went to get ready for work. While in the bathroom he began to feel sick and vomited bright red blood. He states he was then given an emesis bag that he filled up bright red vomit. He continued to vomit upon arrival to the hospital. Emesis was later a dark brown in color, and minimal. He last vomited around 12:30pm. Patient was started on Sandostatin drip and Protonix drip. Since then he has not had any further GI bleeding. He has had minimal left-sided abdominal pain that has resolved he does complain of some epigastric burning. Past Medical History Cardiovascular: AFIB, HTN obesity, fatty liver GI: Gastritis, Other (esophageal varices) Hepatobiliary: Cirrhosis Past Surgical History Past Surgical History: Appendectomy Family History: Patient reports no known family medical history. Allergies: Coded Allergies: NO KNOWN ALLERGIES (Unverified , 12/30/24) Home Meds Reported Medications Sucralfate (CARAFATE) 1 Gm Tab, 1 GM OR TIDWMEALS, TAB 12/30/24 Omeprazole Magnesium (Omeprazole) 20 Mg Tab, 20 MG PO DAILY, TAB 12/30/24 Metoprolol Succinate (Metoprolol Succinate Er) 50 Mg Tab, 1 TAB PO DAILY, #30 TAB 5 Refills 12/30/24 Methimazole (Methimazole) 5 Mg Tab, 20 MG PO DAILY, TAB 12/30/24 Losartan Potassium (Losartan Potassium) 100 Mg Tab, 1 TAB PO DAILY, #30 TAB 5 Refills 12/30/24 Apixaban Base (ELIQUIS) 5 Mg Tab, 5 MG PO BID, TAB 12/30/24 Amlodipine Besylate (Amlodipine Besylate) 10 Mg Tab, 1 TAB PO DAILY, #30 TAB 5 Refills 12/30/24 Current Medications Current Medications Medications (Trade) Dose Ordered Sig/Mariam Route PRN Reason Start Time Stop Time Status Last Admin Hydralazine HCl (Apresoline Injection) 10 mg Q6HP PRN IV SBP>150 12/30/24 21:45 12/31/24 11:36 Methimazole (Tapazole) 20 mg DAILY PO 01/01/25 10:00 Pantoprazole Sodium (Protonix Tablet) 40 mg BID@0600,1700 PO 12/31/24 17:00 Acetaminophen/ Hydrocodone Bitart ([place] 10/325MG Tab) 1 tab Q4HP PRN PO MILD PAIN (1-3 PAIN SCALE) 12/31/24 13:00 Vital Signs Vital Signs Date Time Temp Pulse Resp B/P (MAP) Pulse Ox O2 Delivery O2 Flow Rate FiO2 12/31/24 16:54 98.3 68 20 155/125 (135) 97 98.3 12/31/24 08:00 Room Air* 0 21 Physical Exam General Appearance: Alert, Oriented X3, Cooperative, no distress HEENT: Atraumatic, PERRLA Respiratory: Clear to auscultation Cardiovascular: Normal S1, Normal S2, Other (SB) Abdominal: Normal bowel sounds, Soft Extremities: No clubbing, No cyanosis Skin: No rashes, No breakdown, No significant lesion Neuro: Normal gait, Normal speech, Strength at 5/5 X4 ext, Normal tone, Sensation intact Psych/Mental Status: Mental status NL, Mood NL, Other Labs/Diagnostic Data Labs Test 12/31/24 05:43 12/30/24 16:32 12/30/24 13:28 12/30/24 12:12 Range/Units White Blood Count 5.4 4.4-10.8 10^3/uL Red Blood Count 5.42 4.5-5.90 10^6/uL Hemoglobin 16.2 13.5-17.5 g/dL Hematocrit 46.5 41.0-53.0 % Mean Corpuscular Volume 85.8 80.0-100.0 fL Mean Corpuscular Hemoglobin 29.9 28.0-32.0 pg Mean Corpuscular Hemoglobin Concent 34.8 32.0-36.0 g/dL Red Cell Distribution Width 16.9 H 11.8-14.3 % Platelet Count 118 L 140-450 10^3/uL Mean Platelet Volume 9.9 6.9-10.8 fL Neutrophils (%) (Auto) 54.7 37.0-80.0 % Lymphocytes (%) (Auto) 37.7 10.0-50.0 % Monocytes (%) (Auto) 5.8 0.0-12.0 % Eosinophils (%) (Auto) 1.5 0.0-7.0 % Basophils (%) (Auto) 0.3 0.0-2.0 % Neutrophils # (Auto) 3.0 1.6-8.6 10 ^3/uL Lymphocytes # (Auto) 2.0 0.4-5.4 10 ^3/uL Monocytes # (Auto) 0.3 0-1.3 10 ^3/uL Eosinophils # (Auto) 0.1 0-0.8 10 ^3/uL Basophils # (Auto) 0 0-0.2 10 ^3/uL Nucleated Red Blood Cells 0.3 % Sodium Level 137 136-145 mmol/L Potassium Level 4.3 3.5-5.1 mmol/L Chloride Level 103 98-107 mmol/L Carbon Dioxide Level 25 20-31 mmol/L Anion Gap 9 5-15 Blood Urea Nitrogen 17 9-23 mg/dL Creatinine 1.03 0.700-1.30 mg/dL Glomerular Filtration Rate Calc 95 >90 mL/min BUN/Creatinine Ratio 16.5 10.0-20.0 Serum Glucose 112 H 74-106 mg/dL Calcium Level 9.3 8.7-10.4 mg/dL Total Bilirubin 1.1 H 0.2-1.0 mg/dL Aspartate Amino Transferase (AST) 31 13-40 U/L Alanine Aminotransferase (ALT) 21 7-40 U/L Alkaline Phosphatase 345 H 46-116 U/L Total Protein 7.3 5.7-8.2 g/dL Albumin 4.4 3.2-4.8 g/dL Amylase Level 49 30-118 U/L Lipase 34 12-53 U/L Thyroid Stimulating Hormone (TSH) 1.39 0.55-4.78 uIU/mL Urine Color Light-yellow Yellow Urine Clarity Clear Clear Urine pH 7.0 5.0-9.0 Urine Specific [place] 1.023 1.001-1.035 Urine Protein Negative Negative Urine Ketones Negative Negative Urine Blood Negative Negative /uL Urine Nitrite Negative Negative Urine Bilirubin Negative Negative Urine Urobilinogen Normal Negative mg/dL Urine Leukocyte Esterase Negative Negative /uL Urine RBC None seen 0 - 3 /hpf Urine Microscopic WBC < 1 0-3 /HPF Urine Squamous Epithelial Cells None seen <5 /hpf Urine Bacteria None seen None Seen /hpf Urine Glucose Normal Normal mg/dL Troponin I High Sensitivity 6 </=54 ng/L Prothrombin Time 12.2 H 9.3-11.8 sec Prothrombin Time INR 1.17 H 0.9-1.15 Activated Partial Thromboplast Time 26.9 24.5-34.5 SEC Microbiology Date/Time Source Procedure Growth Status 12/31/24 05:50 Nose MRSA Screen - Final Complete CT SCAN ABD PELVIS IMPRESSION: 1. Nonspecific mildly distended fluid-filled small bowel loops. Findings may be seen with ileus or enteritis in the appropriate clinical setting. No small bowel obstruction. 2. Scattered colonic diverticula without adjacent inflammatory changes to suggest diverticulitis. 3. Hepatic steatosis. 4. Moderately distended bladder. 5. Additional findings as detailed above. Problems(with codes): (1) Fatty liver (2) UGIB (upper gastrointestinal bleed) Plan/Recommendation Plan Clear liquid diet Continue IV octreotide drip for now Protonix 40 mg IV q.12 hours NPO after midnight Patient will be tentatively scheduled for an endoscopy on 01/01/2025 Jd is on hold I will review records from previous other hospitals Plan discussed with: Other (Nurse) RHYS CRAWLEY MD December 31, 2024 17:32
[2024-12-31] MEDS: PANTOPRAZOLE 40 MG TAB PO SCH (18:51)
[2024-12-31] MEDS: HYDROcodone-ACET 10/325MG TAB PO PRN (21:25)
[2025-01-01] VITALS (8 sets, daily range): BP systolic 104–162; BP diastolic 79–108; PULSE 53–102; RESP 16–20; TEMP 97.5–98.1; O2SAT 96–99
[2025-01-01 06:31] LABS: Basophils # (auto) 0 10 ^3/uL (0-0.2); Basophils % (auto) 0.3 % (0.0-2.0); Eosinophils # (auto) 0.1 10 ^3/uL (0-0.8); Eosinophils % (auto) 1.4 % (0.0-7.0); Hematocrit 46.8 % (41.0-53.0); Hemoglobin 15.9 g/dL (13.5-17.5); Lymphocytes # (auto) 2.2 10 ^3/uL (0.4-5.4); Lymphocytes % (auto) 34.8 % (10.0-50.0); Mean Corpuscular Hemoglobin 29.3 pg (28.0-32.0); Mean Corpuscular Volume 86.1 fL (80.0-100.0); Monocytes # (auto) 0.4 10 ^3/uL (0-1.3); Monocytes % (auto) 6.2 % (0.0-12.0); Neutrophils # (auto) 3.6 10 ^3/uL (1.6-8.6); Neutrophils % (auto) 57.3 % (37.0-80.0); Nucleated Red Blood Cells % 0.3 %; Platelet Count (auto) 131 10^3/uL (140-450); Red Blood Cells 5.43 10^6/uL (4.5-5.90); Red Cell Distribution Width 17.2 % (11.8-14.3); White Blood Cell 6.2 10^3/uL (4.4-10.8)
[2025-01-01] MEDS: methIMAzole 5 MG TAB PO SCH (09:11)
[2025-01-01] MEDS ORDERED: fentaNYL CITRATE 100 MCG/2 ML VL ONE (13:01)
[2025-01-01] MEDS ORDERED: MIDAZOLAM HCL 2MG/2ML 2ml VIAL (1mg/ml) ONE ×2 (13:01)
[2025-01-01] MEDS ORDERED: PROPOFOL 10 MG/ML 20 ML IV ONE (13:01)
[2025-01-01] MEDS ORDERED: KETAMINE 50mg/ML 1ml syringe ONE (13:01)
[2025-01-01] MEDS ORDERED: ONDANSETRON HCL 4 MG/2 ML VIAL ONE (13:01)
--- NOTE | 2025-01-01 13:48 | DVHOP2 ---
Operative Report DATE OF OPERATION: 01/01/25 PROCEDURE: Upper Endoscopy with biopsy. PREOPERATIVE INDICATION: The patient is a 39 -year-old male undergoing endoscopy for history of hematemesis and questionable history of prior varices POSTOPERATIVE DIAGNOSES: 1. Patient had a 1-2 cm sliding-type hiatal hernia with grade a erosive esophagitis and GE junction biopsies were obtained 2. Patient had no evidence of esophageal varices 3. Moderate gastritis and gastropathy involving the proximal and midbody of the stomach from which biopsies were obtained 4. Otherwise normal examination up to the 2nd and 3rd part of the duodenum with no active bleeding PROCEDURE PERFORMED BY: Rhys Crawley GI NURSE: Tigist SCOPE: Olympus videoendoscope. ASA CLASS: 3 PREOPERATIVE MEDICATIONS: Riky mcdaniel, Dr. Martinez PROCEDURE IN DETAIL: After obtaining an informed consent, the patient was placed on left lateral decubitus position. The patient was then sedated with the above medications. A bite block was placed between his teeth. The endoscope was then passed through the oropharynx, into the esophagus, and through the stomach and pylorus up to the second and third part of the duodenum. The endoscope was then withdrawn. The 2nd and 3rd part of the duodenum were normal and the duodenal bulb showed minimal duodenitis. Duodenal biopsies were obtained. The pre-pyloric area and antrum showed mild gastritis. On retroflexion and straight on view the patient had moderate gastritis and gastropathy involving the proximal and midbody of the stomach Gastric biopsies were obtained. There were no gastric varices. The endoscope was then withdrawn into distal esophagus where the patient had a 2 cm sliding- type hiatal hernia The patient had a slightly irregular squamocolumnar junction with grade a erosive esophagitis. GE junction biopsies were obtained. The patient had no evidence of esophageal varices or congestion of esophageal veins. The remaining distal and proximal esophagus and oropharynx were unremarkable The patient tolerated the procedure well without difficulty. COMPLICATIONS : None SPECIMENS: Duodenal biopsies Gastric biopsies GE junction biopsies DISPOSITION: Transfer back to the floor Stable PLAN: 1. Await for biopsy result 2. Will place pt on Protonix 40 mg po bid 3. Carafate 1 g p.o. 4 times a day 4. DC aspirin NSAIDs smoking alcohol 5. Resume GI soft diet advance as tolerated 6. 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 Patient is stable for discharge from GI point of view, check previous records from [facility] earlier this year RHYS CRAWLEY MD January 01, 2025 13:48
[2025-01-01 15:05] LABS: Hepatitis B Core Total AB Negative (Negative)
[2025-01-01 16:32] LABS: Hepatitis A Total Antibody Positive (Negative); Hepatitis B Surface Antibody Positive (Negative); Hepatitis B Surface Antigen Negative (Negative)
[2025-01-01 16:35] LABS: Hepatitis C Antibody Positive (Negative)
[2025-01-01] MEDS: SUCRALFATE 1 GM/10 ML ORAL SUSP PO SCH (18:03)
--- NOTE | 2025-01-01 22:39 | DVHPN ---
DATE: 01/01/2025 ATTENDING PHYSICIAN: Dr. Jose De Jesus Trejo. SUBJECTIVE: The patient is sitting up in bed, watching TV. He is asking if I can advance his diet to a regular diet. He has tolerated everything so far. He completed the EGD, which showed a sliding hernia with erosive esophagitis. No evidence of esophageal varices. Moderate gastritis. Otherwise, normal exam up to the 2nd and 3rd part of the duodenum with no active bleeding. He denies any complaints at this time. He denies any abdominal pain. He denies any nausea or vomiting. OBJECTIVE: VITAL SIGNS: His temperature is 97.9 with a blood pressure of 104/ ____. Heart rate of 87, respiratory rate 18, O2 saturation 97% on room air. HEART: S1, S2. LUNGS: Good equal exchange bilaterally. Clear to auscultation. ABDOMEN: Soft. Benign. NEURO: He is awake, alert, and oriented x4 without focal deficits. LABORATORY DATA: His WBC is 6.2, hemoglobin 15.9, platelets 131. EGD as per previously stated. ASSESSMENT: * Gastrointestinal bleed with hematemesis. * Erosive esophagitis. * Gastritis. * History of AFib, on anticoagulants. * History of fatty liver. PLAN: I will advance the patient to regular diet and we will continue with Protonix. Continue with methimazole for his hyperthyroid. We will follow his CBC, observe the patient overnight after a regular diet. MD PATI Fish/MART TID: [id number] RECEIPT: [id number]
[2025-01-02 01:00] VITALS: BP 137/100; PULSE 78; RESP 20; TEMP 97.7; O2SAT 97
[2025-01-02 05:00] VITALS: BP 139/83; PULSE 64; RESP 18; TEMP 97.6; O2SAT 96
[2025-01-02 06:38] LABS: Basophils # (auto) 0 10 ^3/uL (0-0.2); Basophils % (auto) 0.3 % (0.0-2.0); Eosinophils # (auto) 0.1 10 ^3/uL (0-0.8); Eosinophils % (auto) 1.4 % (0.0-7.0); Hematocrit 46.9 % (41.0-53.0); Hemoglobin 15.9 g/dL (13.5-17.5); Lymphocytes # (auto) 2.1 10 ^3/uL (0.4-5.4); Lymphocytes % (auto) 31.7 % (10.0-50.0); Mean Corpuscular Hemoglobin 29.4 pg (28.0-32.0); Mean Corpuscular Hgb Conc. 33.9 g/dL (32.0-36.0); Mean Corpuscular Volume 86.7 fL (80.0-100.0); Monocytes # (auto) 0.4 10 ^3/uL (0-1.3); Monocytes % (auto) 6.4 % (0.0-12.0); Neutrophils # (auto) 3.9 10 ^3/uL (1.6-8.6); Neutrophils % (auto) 60.2 % (37.0-80.0); Nucleated Red Blood Cells % 0.2 %; Platelet Count (auto) 131 10^3/uL (140-450); Red Blood Cells 5.41 10^6/uL (4.5-5.90); Red Cell Distribution Width 17.1 % (11.8-14.3); White Blood Cell 6.6 10^3/uL (4.4-10.8)
[2025-01-02 08:00] VITALS: PULSE 50
[2025-01-02 09:00] VITALS: BP 128/104; PULSE 60; RESP 18; TEMP 97.9; O2SAT 97
--- NOTE | 2025-01-02 16:04 | DVHDS ---
DATE OF DISCHARGE: 01/02/2025 ATTENDING PHYSICIAN: Jose De Jesus Trejo MD CHIEF COMPLAINT ON ADMISSION: Hematemesis. HISTORY: A 39-year-old male, [facility] inmate, with known history of AFib, hyperthyroidism, esophageal varices, and fatty liver, suddenly started vomiting bright red and dark black blood. He was brought to the Emergency Room and given that the patient was currently taking Eliquis, he was admitted for further management. ADMITTING DIAGNOSES: * Hematemesis/GI bleed. * Fatty liver. * History of AFib. HOSPITAL COURSE: in stable condition. He was started on drip as well as Protonix drip. Serial CBCs obtained. Hemoglobin has maintained above 15 throughout the hospital stay, not requiring any blood transfusion. GI consult with Dr. Hyacinth Carl was obtained. The patient was taken into GI lab, underwent EGD, and was found to have some mild erosive esophagitis as well as moderate gastritis, but no active bleeding nor ulcers were seen. The patient was initially started on a clear liquid diet and advanced to regular diet which he has been tolerating. He has had no episodes of vomiting throughout hospital stay. He has now been discharged back to the care of the [facility] authorities in good and stable condition. DISCHARGE DIAGNOSES: * Hematemesis/GI bleed. * Atrial fibrillation. DISCHARGE MEDICATIONS: The patient was instructed to resume all of his previous medications except his Eliquis blood thinner which I have instructed him to hold until 7-10 days from the last dose. He states that he understands and I particularly told him that he should resume the omeprazole that he had been taking at the [facility]. I also instructed him to follow up with [facility] upon his return to the [facility] for further management. MD PATI Fish/MATHEW/GRACIELA TID: [id number] RECEIPT: [id number]
== END 2025-01-02 13:00 | DRG 382 ==
LOC: EDBD 11:37 → EEVIPCON 11:37 → ER 11:51 → EDBD 11:51 → OVERFLOW 16:15 → TELE-WESTW 23:56
PROVIDERS: ADMIT Internal Medicine; ATTEND Internal Medicine
PROC: 0DB48ZX Excision of Esophagogastric Junction, Via Natural or Artificial Opening Endoscopic, Diagnostic (ICD-10-PCS; 2025-01-01)
PROC: 0DB68ZX Excision of Stomach, Via Natural or Artificial Opening Endoscopic, Diagnostic (ICD-10-PCS; 2025-01-01)
PROC: 0DB98ZX Excision of Duodenum, Via Natural or Artificial Opening Endoscopic, Diagnostic (ICD-10-PCS; principal; 2025-01-01 13:15)
DX: K22.11 Ulcer of esophagus with bleeding (principal); K29.71 Gastritis, unspecified, with bleeding; E05.90 Thyrotoxicosis, unspecified without thyrotoxic crisis or storm; I16.0 Hypertensive urgency; I48.91 Unspecified atrial fibrillation; K76.0 Fatty (change of) liver, not elsewhere classified; K74.60 Unspecified cirrhosis of liver; K44.9 Diaphragmatic hernia without obstruction or gangrene; K31.9 Disease of stomach and duodenum, unspecified; R00.1 Bradycardia, unspecified; R51.9 Headache, unspecified; I10 Essential (primary) hypertension; E66.9 Obesity, unspecified; Z79.899 Other long term (current) drug therapy; Z82.49 Family history of ischemic heart disease and other diseases of the circulatory system; Z79.01 Long term (current) use of anticoagulants; Z90.49 Acquired absence of other specified parts of digestive tract
CPT/HCPCS: 36415; 71045; 74177; 76705; 80053; 81001; 82150; 83690; 84443; 84484; 85014; 85018; 85025; 85610; 85730; 86704; 86706; 86708; 86803; 86850; 86900; 86901; 87081; 87340; 93005; 96374; 96375; 99291; G0378; J1885; J2250; J2405; J2470; J2704